=== PATIENT | male | born 1995 | race Caucasian/White ===

== ENCOUNTER 2019-05-12 13:48 | Observation (INO) ==
[~2019-05-12 13:48] MED LIST: NICOTINE PATCH ONE
[2019-05-12] MEDS ORDERED: D5 1/2 NS 1000 ML IV ONE (15:00)
[2019-05-12] MEDS ORDERED: ZOSYN VIAL 3.375 GRAMS IV ONE (15:00)
[2019-05-12] MEDS ORDERED: NS 100 ML IV + SPIKE MINIBAG IV ONE (15:00)
[2019-05-12] MEDS ORDERED: DILAUDID INJ IVP ONE (15:30)
[2019-05-12] MEDS ORDERED: NS 100 ML IV IV ONE (17:00)
[2019-05-12] MEDS ORDERED: BENADRYL INJ 50 MG VIAL ONE (19:55)
[2019-05-12] MEDS ORDERED: [UNRECOGNIZED DRUG - OTHER] ONE (21:40)
[2019-05-12] MEDS ORDERED: D5 1/2 NS 1000 ML ONE (22:09)
[2019-05-13] MEDS ORDERED: NS 100 ML IV IV ONE ×2 (05:07→13:40)
[2019-05-13] MEDS ORDERED: ZOSYN VIAL 3.375 GRAMS IV ONE ×2 (05:07→13:40)
[2019-05-13] MEDS ORDERED: NICOTINE PATCH TD ONE (08:59)
[2019-05-13] MEDS ORDERED: BENADRYL INJ 50 MG VIAL IVP ONE (15:53)
[2019-05-13] MEDS ORDERED: D5 1/2 NS 1000 ML IV ONE (16:58)
[2019-05-17 11:25] LABS: BLOOD UREA NITROGEN 6 mg/dL (7-18); CARBON DIOXIDE 29.5 mmol/L (21-32); CHLORIDE 99 mmol/L (98-107); SODIUM 137 mmol/L (136-145)
[2019-05-17 11:26] LABS: ALANINE AMINOTRANSFERASE 56 Units/L (12-78); ALBUMIN 4.2 g/dL (3.4-5.0); ALKALINE PHOSPHATASE 82 Units/L (46-116); ASPARTATE AMINO TRANSFERASE 39 Units/L (15-37); CALCIUM 9.2 mg/dL (8.5-10.1); CREATININE 0.95 mg/dL (0.70-1.30); TOTAL PROTEIN 8.7 g/dL (6.4-8.2); eGFR NON BLACK RACES > 60 (>60)
[2019-05-17 11:27] LABS: BASOPHILS % (AUTO) 0.2 % (0.2-1.0); EOSINOPHILS # (AUTO) 0.1 x10^3/uL (0.0-0.2); HEMATOCRIT 47.5 % (42.0-54.0); HEMOGLOBIN 16.7 g/dL (13.5-18.0); LYMPHOCYTES # (AUTO) 1.3 X10^3/uL (1.3-2.9); LYMPHOCYTES % (AUTO) 15.6 % (21.0-51.0); MEAN CORPUSCULAR HEMOGLOBIN 33.5 pg (27.0-34.0); MEAN CORPUSCULAR HGB CONC 35.2 g/dL (33.0-35.0); MEAN CORPUSCULAR VOLUME 95.1 fL (80.0-100.0); MEAN PLATELET VOLUME 7.4 fL (7.4-11.0); MONOCYTES # (AUTO) 0.6 x10^3/uL (0.3-0.8); MONOCYTES % (AUTO) 7.5 % (0.0-13.0); NEUTROPHILS # (AUTO) 6.2 x10^3/uL (2.2-4.8); NEUTROPHILS % (AUTO) 75.7 % (42.0-75.0); PLATELET COUNT 317 X10^3/uL (150.0-450.0); RED BLOOD COUNT 4.99 X10^6/uL (4.7-6.0); RED CELL DISTRIBUTION WIDTH 12.4 % (11.6-16.5); WHITE BLOOD COUNT 8.1 X10^3/uL (3.6-10.0)
[2019-05-17 11:29] LABS: APPEARANCE,URINE CLEAR (CLEAR); COLOR,URINE PALE YELLOW (YELLOW)
[2019-05-17 11:30] LABS: BILIRUBIN,URINE NEGATIVE (NEGATIVE); BLOOD/HEMOGLOBIN,URINE NEGATIVE (NEGATIVE); GLUCOSE, URINE NEGATIVE (NEGATIVE); KETONES,URINE NEGATIVE (NEGATIVE); NITRITES,URINE POSITIVE (NEGATIVE); PROTEIN,URINE 1+ (NEGATIVE); UROBILINOGEN,URINE NORMAL (NORMAL)
[2019-05-17 11:31] LABS: LEUKOCYTE ESTERASE ,URINE NEGATIVE (NEGATIVE)
[2019-05-17 11:32] LABS: AMORPHOUS SEDIMENT,UR TRACE /HPF (NEGATIVE); BACTERIA,URINE NEGATIVE /HPF (NEGATIVE); RBC,URINE NONE SEEN /HPF (NONE SEEN); SQUAMOUS EPITHELIAL CELL,UR NEGATIVE /HPF (NEGATIVE)
[2019-05-17 11:34] LABS: BLOOD UREA NITROGEN 4 mg/dL (7-18); CARBON DIOXIDE 30.3 mmol/L (21-32); CHLORIDE 103 mmol/L (98-107); CREATININE 0.93 mg/dL (0.70-1.30); SODIUM 139 mmol/L (136-145); eGFR NON BLACK RACES > 60 (>60)
[2019-05-17 11:35] LABS: ALANINE AMINOTRANSFERASE 48 Units/L (12-78); ALBUMIN 3.5 g/dL (3.4-5.0); ALKALINE PHOSPHATASE 66 Units/L (46-116); ASPARTATE AMINO TRANSFERASE 36 Units/L (15-37); CALCIUM 8.5 mg/dL (8.5-10.1); TOTAL PROTEIN 7.3 g/dL (6.4-8.2)
[2019-05-17 11:36] LABS: WHITE BLOOD COUNT 7.1 X10^3/uL (3.6-10.0)
[2019-05-17 11:37] LABS: BASOPHILS % (AUTO) 0.3 % (0.2-1.0); EOSINOPHILS # (AUTO) 0.2 x10^3/uL (0.0-0.2); EOSINOPHILS % (AUTO) 3.1 % (0.9-2.9); HEMATOCRIT 43.8 % (42.0-54.0); HEMOGLOBIN 15.4 g/dL (13.5-18.0); LYMPHOCYTES % (AUTO) 28.2 % (21.0-51.0); MEAN CORPUSCULAR HEMOGLOBIN 33.4 pg (27.0-34.0); MEAN CORPUSCULAR HGB CONC 35.1 g/dL (33.0-35.0); MEAN CORPUSCULAR VOLUME 95.3 fL (80.0-100.0); MEAN PLATELET VOLUME 7.8 fL (7.4-11.0); MONOCYTES # (AUTO) 0.6 x10^3/uL (0.3-0.8); NEUTROPHILS # (AUTO) 4.3 x10^3/uL (2.2-4.8); NEUTROPHILS % (AUTO) 60.4 % (42.0-75.0); PLATELET COUNT 273 X10^3/uL (150.0-450.0); RED CELL DISTRIBUTION WIDTH 12.6 % (11.6-16.5)
== END 2019-05-13 17:05 | disposition home or self-care (01) ==
LOC: MED/SURG 13:48 → ER 13:48 → MED/SURG 18:05 → OBS 18:41 → MED/SURG 18:42 → UNDODISOB 05-13 17:05
PROVIDERS: ADMIT Surgery; ATTEND Surgery
DX: R11.2 Nausea with vomiting, unspecified; K62.5 Hemorrhage of anus and rectum; K52.89 Other specified noninfective gastroenteritis and colitis; R10.31 Right lower quadrant pain
CPT/HCPCS: 36415; 74177; 80053; 81001; 82270; 85025; 87086; 96365; 96367; 96374; 96375; A4222; G0378; J1170; J1200; J2175; J2543; J7050; S5010